=== PATIENT | female | born 1990 | race Caucasian/White ===

== ENCOUNTER 2025-07-18 11:10 | Emergency (ER) | payer OTHER ==
[~2025-07-18] VITALS: Ht 165.1 cm; Wt 67.1 kg
[2025-07-18 12:32] VITALS: BP 110/74; TEMP 98.4; O2SAT 99
== END 2025-07-18 12:33 | disposition home or self-care (01) ==
LOC: ER 11:12
DX: R51.9 Headache, unspecified (principal); H53.8 Other visual disturbances; R42 Dizziness and giddiness